=== PATIENT | female | born 1985 | race Caucasian/White ===

== ENCOUNTER 2020-05-07 06:14 | Day surgery (SDC) | payer OTHER ==
[~2020-05-07] VITALS: Ht 152.4 cm; Wt 72.6 kg
[2020-05-07] MEDS ORDERED: fentaNYL citrate 0.05 MG/ML VIAL ONE (07:44)
[2020-05-07] MEDS ORDERED: MIDAZOLAM 5 MG/5 ML VIAL ONE (07:45)
[2020-05-07] MEDS ORDERED: diphenhydrAMINE 50 MG/ML VIAL ONE (07:45)
[2020-05-07] MEDS: MIDAZOLAM 2 MG/2 ML VIAL IVP ONE (07:56)
[2020-05-07] MEDS: fentaNYL citrate 0.05 MG/ML VIAL IVP ONE (07:57)
[2020-05-07] MEDS: LIDOCAINE 2% 100 MG/5 ML UJET TP ONE (08:02)
[2020-05-07] MEDS: ONDANSETRON 4 MG TAB PO ONE (09:15)
[2020-05-07] MEDS ORDERED: ONDANSETRON 4 MG ODT PO ONE (09:15)
== END 2020-05-07 09:20 | disposition home or self-care (01) ==
LOC: MDS 06:14 → MFCC 06:26 → MDS 09:20
PROVIDERS: ATTEND Internal Medicine Gastroenterology
DX: R19.5 Other fecal abnormalities (principal); I10 Essential (primary) hypertension; Z79.899 Other long term (current) drug therapy
CPT/HCPCS: 45378; 81025; J2250; J3010; Q0162; J1200